=== PATIENT | female | born 1985 | race Caucasian/White ===

== ENCOUNTER 2021-01-13 10:36 | Emergency (ER) | payer BC, SELFPAY ==
[2021-01-13 12:20] VITALS: BP 149/61; PULSE 87; RESP 18; TEMP 36.6; O2SAT 99; BMI 30.2
--- NOTE | 2021-01-13 12:38 | HMH.EDUTC ---
[facility] [place] Clinical Impression: Viral syndrome Disposition: Home, Self-Care Condition on Discharge: Good Instructions: DI for Viral Syndrome, DI for COVID-19 (Suspected or Confirmed ), Preventing the Spread of Coronavirus Discharge Instructions Additional Instructions: *Monitor Temp, Over the counter Motrin or Tylenol as directed/as needed Tylenol every 4 hours and Motrin every 6 hours (as long as your family doctor has told you that you can take it) for fever or pa-in. and straight to ER if unable to lower temp less than 101.0 after medication given *Warm salt water gargles may help to soothe the throat *Throat Lozenges *Warm fluids like tea with honey may help to soothe the throat *Sleep elevated *Humidifier/Vaporizer *Flonase 2 sprays in each nostril daily but be aware that it may take 2-3 days before you notice improvement Follow up IMMEDIATELY for new or worsening symptoms or no Noticeable improvement over the next 48-72 hours. 911 for difficulty breathing or swallowing You were tested for today for COVID19 your test result should be back in the next 24-48 hours, Check the [facility] Portal to see if your test results are back in the next 48 it may say detected that means your result is positive.You was given handout instructions on how log on and see your results. If you do not have internet access you may call the [facility] for your results [phone] You was given a handout with instructions for Self Quarantine and Self isolation for while you wait on test results and what to do if they are positive If you are positive the Health Dept will be contacting you also Make sure to take your Vitamins Vit. C Vit D and Zinc if you can take them Prescriptions: Fluticasone Propionate [Flonase 50mcg nasal spray 16gm] 1 spr NS DAILY #1 ml Transmission Status: Pending to [id number] guaiFENesin [Mucinex 600mg tablet] 1 - 2 tab PO BID #20 tab Transmission Status: Pending to [id number] Referrals: Provider,Referral, MD [Primary Care Provider] - As needed Forms: Work/School Release Time of Disposition: 12:45 Medical Decision Making - Ambrosio Inquiry Pt receiving controlled substance: No Ambrosio was queried for this patient: No Vital Signs: 01/13/21 12:20 Temperature 97.9 F Temperature Source Oral Pulse Rate [Right Brachial] 87 Respiratory Rate 18 Blood Pressure [Right Arm] 149/61 H Blood Pressure Mean [Right Arm] 90 Blood Pressure Source [Right Arm] Automatic Cuff Blood Pressure Position [Right Arm] Sitting 02 Sat by Pulse Oximetry 99 Oxygen Delivery Method Room Air Orders (Tests/Meds): ORDERS Category Date Time Status Covid-19 Nasal PCR ([facility]) Routine Lab 01/13/21 12:30 Received Medical Decision Narrative: Patient reports history of tubal [facility] UTC HPI - General Stated complaint: covid test Time Seen by Provider: 01/13/21 12:38 Mode of Arrival: Ambulatory Source of Information: Patient Limitations: No Limitations Description of Symptoms (Recalled from Triage Doc. by RN): PATIENT C/O LOSS OF TASTE AND SMELL, HEADACHE, BODY ACHES, CHEST CONGESTION, AND SINUS CONGESTION X 2 DAYS HEENT Symptoms (Recalled from RN notes): Yes Resp Symptoms (Recalled from RN notes): No Skin Symptoms (Recalled from RN notes): No MS Symptoms (Recalled from RN notes): No Functional Status (Recalled from RN notes): WNL - History of Present Illness Provider Complaint: Patient states that she noticed over the weekend she was unable to smell or taste anything States and thought it may have been allergies States that since then she has been having sinus congestion and drainage in the back of her throat and feels like it is trying to move into her chest area - Related Data Previous Rx's Medication Instructions Recorded Cyclobenzaprine HCl [Flexeril 10mg 10 mg PO TID PRN #15 tab 04/19/19 tablet] Etodolac [Etodolac 200mg Cap*] 200 mg PO Q6H PRN #20 cap 04/19/19 Fluticasone Propionate [Flonase 1 spr NS
[2021-01-13 12:45] VITALS: BP 149/61; PULSE 87; RESP 18; TEMP 36.6; O2SAT 99
--- NOTE | 2021-01-14 12:49 | PC.NURSE ---
Notified of positive results
--- NOTE | 2021-01-14 13:04 | PC.NURSE ---
PT NOTIFIED OF POSITIVE COVID TEST RESULTS
== END 2021-01-13 12:51 | disposition home or self-care (01) ==
PROVIDERS: Emergency Provider Nurse Practitioner
DX: U07.1 COVID-19 (principal); B34.9 Viral infection, unspecified; F17.210 Nicotine dependence, cigarettes, uncomplicated
CPT/HCPCS: 99202; G0463; U0003

== ENCOUNTER 2022-08-21 19:48 | Emergency (ER) | payer BC, SELFPAY ==
[2022-08-21 19:50] VITALS: BP 178/102; PULSE 113; RESP 18; TEMP 36.4; O2SAT 99; BMI 36.3
--- NOTE | 2022-08-21 20:17 | HMH.EDWNDL ---
Discharge Plan Disposition Patient Disposition: Home, Self-Care Prescriptions Prescriptions: New cephalexin [cephalexin] 500 mg capsule 500 mg PO TID Qty: 30 0RF clindamycin HCl 300 mg capsule 300 mg PO Q8H 10 Days Qty: 30 0RF ketorolac 10 mg tablet 10 mg PO Q8H 3 Days Qty: 9 0RF No Action fluticasone propionate 120 SPR/BOT bottle 1 spr NS DAILY Qty: 1 0RF Rx Instructions: each nostril daily guaifenesin 600 MG tablet extended release 12hr 1 - 2 tab PO BID Qty: 20 0RF cyclobenzaprine 10 MG tablet 10 mg PO TID PRN (Reason: Muscle Spasm) Qty: 15 0RF etodolac 200 MG capsule 200 mg PO Q6H PRN (Reason: Moderate Pain) Qty: 20 0RF Referrals Follow up/Referrals: Provider,Referral, MD [Primary Care Provider] - See instructions Clinical Impressions Clinical Impression: Abscess Instructions Patient Instructions: Boil Discharge ED Provider: Elvi (ED)Marc Wound/Laceration HPI General Chief Complaint: Wound/Laceration Stated Complaint: BOIL IN CREASE OF l LEFT Time Seen by Provider: 08/21/22 20:00 Mode of Arrival: Ambulatory Source of Information: Patient, Spouse and Medical Record Limitations: No Limitations Description of Symptoms (Recalled from ER Triage Doc. by RN): Pt arrives to ED with c/o a possible boil to her left inner thigh. Pt stated it started on Wednesday and has gotten worse through the week. Pt said she has a hx of boils, but they normally go away after a few days. History of Present Illness HPI narrative: abscess lt pubic mons area over the last few days - Onset (ago): day(s) Location: genitals (pubis) Place: home Context: other (boil) Related Data Previous Rx's Medication Instructions Recorded cyclobenzaprine 10 mg tablet 10 mg PO TID PRN Muscle Spasm #15 04/19/19 tabs etodolac 200 mg capsule 200 mg PO Q6H PRN Moderate Pain 04/19/19 #20 caps fluticasone propionate 50 1 spr NS DAILY #1 mL 01/13/21 mcg/actuation nasal spray,suspension guaifenesin 600 mg tablet, 1 - 2 tab PO BID Congestion/chest 01/13/21 extended release 12 hr congesti #20 tabs cephalexin 500 mg capsule 500 mg PO TID #30 caps 08/21/22 clindamycin HCl 300 mg capsule 300 mg PO Q8H 10 days #30 caps 08/21/22 ketorolac 10 mg tablet 10 mg PO Q8H 3 days #9 tabs 08/21/22 Allergies Allergy/AdvReac Type Severity Reaction Status Date / Time Latex Allergy Intermediate I-ITCHING Uncoded 05/04/17 15:09 [facility] Disclaimer: The information contained in this section may have been updated after the patient was seen, as this information can be updated by other users. Social History Smoking Status: Current every day smoker tobacco type: cigarettes packs per day: 1 alcohol intake: never current occupational status: other Travel in the last 8 weeks: None ROS Obtained: Yes All systems reviewed & no additional complaints except as documented Physical Exam General General appearance: alert Head Head exam: normocephalic Eye Eye exam: Present PERRL and EOMI ENT ENT exam: Present normal oropharynx Neck Neck exam: Present trachea midline Respiratory Respiratory exam: Absent respiratory distress Cardiovascular Cardiovascular exam: Present regular rate Abdominal Exam Abdominal exam: Present soft Extremities Exam Extremities exam: Present full ROM Neurological Exam Neurological exam: Present alert, oriented X3 and CN II-XII intact; Absent motor sensory deficit Psychiatric Psychiatric exam: Present normal affect Skin Skin exam: Present other (lt pubic abscess 2x3 cm ) Medical Decision Making Medical Records Medical records reviewed: Yes I reviewed the patient's medical records. Ambrosio Inquiry Pt receiving controlled substance: No Vital Signs: 08/21/22 19:50 Temperature 97.5 F L Temperature Source Oral Pulse Rate [Right] 113 H Respiratory Rate 18 Blood Pressure [Right Arm] 178/102 H Blood Pressure Mean [Right Arm] 127 02 Sat by Pulse Oximetry 99
[2022-08-21 20:24] LABS: Basophils # 0.1 K/mm3 (0-0.2); Basophils % 0.4 % (0.1-2.0); Eosinophils # 0.2 K/mm3 (0.0-0.4); Eosinophils % 1.4 % (0.1-12.0); Hematocrit 42.2 % (37.0-47.0); Hemoglobin 13.6 g/dL (12.2-16.2); Lymphocytes # 2.9 K/mm3 (0.7-4.5); Lymphocytes % 18.6 % (10-50); Mean Corpuscular HGB Conc 32.3 g/dL (31.8-35.4); Mean Corpuscular Hemoglobin 29.6 pg (27.0-31.2); Mean Corpuscular Volume 91.7 fl (81-99); Mean Platelet Volume 7.7 fl (7.4-10.4); Monocytes # 0.7 K/mm3 (0.1-1.0); Monocytes % 4.6 % (1.7-9.3); Neutrophils # 11.8 K/mm3 (1.8-7.8); Platelet Count 356 K/mm3 (142-424); Red Cell Distribution Width 13.6 % (11.5-17.5); White Blood Count 15.7 K/mm3 (4.8-10.8)
[2022-08-21 20:27] LABS: Chloride 104 mmol/L (98-107); Potassium 3.6 mmoL/L (3.5-5.1); Sodium 139 mmol/L (136-145)
[2022-08-21 20:30] LABS: Alanine Aminotransferase 45 U/L (12-78); Albumin Level 4.9 g/dl (3.5-5.0); Albumin/Globulin Ratio 1.6 (1.1-1.8); Alkaline Phosphatase 65 U/L (38-126); Anion Gap 12.6 mEq/L (5-15); Aspartate Amino Transferase 37 U/L (14-36); Bilirubin,Total 0.4 mg/dl (0.2-1.3); Blood Urea Nitrogen 10 mg/dl (7-17); Carbon Dioxide 26 mmol/L (22.0-30.0); Creatinine Clearance Estimated 124 mL/min (50-200); Estimated Glomerular Filt Rate 81 ml/min (>60); GFR (African American) 98 ML/MIN (>60); Glucose 145 mg/dl (74-100); Total Protein,Serum 7.9 g/dl (6.3-8.2)
[2022-08-21 20:31] LABS: MANUAL DIFFERENTIAL MANUAL DIFFERENTIAL (MANUAL DIFF)
[2022-08-21 20:56] LABS: Lymphocytes % 17 % (10-50); Monocytes % 2 % (2-9); Neutrophils % 81 % (42-76); Platelet Estimate Normal; RBC Morphology Normal; Total Cells Counted 100
[2022-08-21 21:17] VITALS: BP 160/88; PULSE 90; RESP 18; TEMP 36.6; O2SAT 99
== END 2022-08-21 21:21 | disposition home or self-care (01) ==
PROVIDERS: Emergency Provider Emergency Medicine
DX: L02.416 Cutaneous abscess of left lower limb (principal)
CPT/HCPCS: 10060; 80053; 85007; 85025; 87040; 87070; 87077; 87205; 96365; 96374; 96375; 99284; 99285; J0696